=== PATIENT | male | born 1960 | race Caucasian/White ===

== ENCOUNTER 2021-09-15 17:40 | Emergency (ER) | payer OTHER ==
[2021-09-15 18:55] LABS: Urine Blood Negative (Negative); Urine Glucose Negative (Negative); Urine Protein Negative (Negative); Urine Specific Gravity 1.015 (1.005-1.030)
[2021-09-15 18:58] LABS: Absolute Lymphocytes (CBC) 2.5 K/uL (0.7-4.9); Hematocrit 44.9 % (39.6-49.0); Lymphocytes % 32.7 % (15.3-44.8); MPV 8.5 fL (7.6-11.3); RBC Red Blood Cell Count 4.46 M/uL (4.33-5.43)
[2021-09-15] MEDS ORDERED: PANTOPRAZOLE 40 MG INJ ONE (19:03)
[2021-09-15] MEDS ORDERED: FENTANYL CITR 100 MCG/2 ML ONE (19:03)
[2021-09-15] MEDS ORDERED: ONDANSETRON 4 MG/2 ML VIAL ONE (19:03)
[2021-09-15 19:11] LABS: Albumin 3.6 g/dL (3.4-5.0)
[2021-09-15 19:16] LABS: Bilirubin Total 0.3 mg/dL (0.2-1.0); Protein, Total 6.7 g/dL (6.4-8.2)
--- NOTE | 2021-09-15 20:16 | RAD REPORT ---
EXAM DESCRIPTION: CTAbdomen Pelvis W Contrast - 09/15/2021 8:08 pm CLINICAL HISTORY: Abdominal pain, acute, nonlocalized COMPARISON: No comparisons TECHNIQUE: CT of the abdomen and pelvis was performed. All CT scans are performed using dose optimization technique as appropriate and may include automated exposure control or mA/KV adjustment according to patient size. FINDINGS: Lower chest: Coronary artery calcifications. Aortic valve calcifications. Liver: Multiple liver lesions identified. The largest lesion in the right posterior hepatic lobe demo nstrates peripheral discontinuous nodular enhancement consistent with a hemangioma. The other lesions also likely represent hemangiomas. The largest lesion measures 7.7 cm. Biliary: No biliary ductal dilatation. Stomach: No significant focal abnormality. Duodenum: No significant focal abnormality. Pancreas: No significant abnormality. Spleen: No significant abnormality. Adrenal: No suspicious lesions. Kidney/ureter: No hydronephrosis. No renal calculi. Too small to characterize and/or benign appearing renal lesions are noted. Retroperitoneum: No retroperitoneal adenopathy. Vascular: No aneurysm. Mild atherosclerosis. Bowel: No significant focal abnormality. Normal appendix. Peritoneum: No ascites or free air. Bladder: Grossly unremarkable. Reproductive: No adnexal masses. Bones: No acute fracture. Other: n/a IMPRESSION: No acute intra-abdominal or pelvic finding. Normal appendix. Liver hemangiomas.
--- NOTE | 2021-09-15 20:56 | EDPHYS ---
Physician Documentation [facility] Name: Blaine Woodall Age: 60 yrs Sex: Male : 1960 Arrival Date: 09/15/2021 Time: 17:44 Bed 19 Private MD: ED Physician Claudio Higgins HPI: 09/15 18:12 This 60 yrs old Male presents to ER via Ambulatory with complaints of Abdominal Pain. cp 18:12 The patient presents with abdominal pain in the upper abdomen. Onset: The cp symptoms/episode began/occurred 1 week(s) ago. 18:12 The symptoms radiate to right and left lateral sides of lower chest. cp 18:12 Associated signs and symptoms: Pertinent negatives: nausea and vomiting, constipation, cp diarrhea, fever, shortness of breath. The symptoms are described as burning. Severity of pain: in the emergency department the pain is unchanged despite home interventions. Historical: - Allergies: 17:55 Sulfa (Sulfonamide Antibiotics); ss 17:55 Bactrim; ss - PMHx: 17:55 HIV positive; Liver hemangioma; Cardiomyopathy; Shingles; ss - Immunization history:: Client reports receiving the 2nd dose of the Covid vaccine. - Social history:: Smoking status: Patient reports the use of cigarette tobacco products, cigars. ROS: 18:20 Constitutional: Negative for body aches, chills, fever, poor PO intake. cp 18:20 Eyes: Negative for injury, pain, redness, and discharge. cp 18:20 Cardiovascular: Negative for chest pain, edema, palpitations. 18:20 Respiratory: Negative for cough, shortness of breath, wheezing. 18:20 Abdomen/GI: Positive for abdominal pain, Negative for nausea, vomiting, and diarrhea, constipation. 18:20 Back: Negative for radiated pain. 18:20 : Negative for urinary symptoms. 18:20 Neuro: Negative for altered mental status, dizziness, headache, weakness. 18:20 All other systems are negative. Exam: 18:25 Constitutional: The patient appears in no acute distress, alert, awake, cp non-diaphoretic, non-toxic, well developed, well nourished. 18:25 Head/Face: Normocephalic, atraumatic. cp 18:25 Eyes: Periorbital structures: appear normal, Conjunctiva: normal, no exudate, no injection, Sclera: no appreciated abnormality, Lids and lashes: appear normal, bilaterally. 18:25 ENT: External ear(s): are unremarkable, Nose: is normal, Mouth: Lips: moist, Oral mucosa: pink and intact, moist, Posterior pharynx: Airway: no evidence of obstruction, patent. 18:25 Chest/axilla: Inspection: normal, Palpation: is normal, no crepitus, no tenderness. 18:25 Cardiovascular: Rate: normal, Rhythm: regular, Edema: is not appreciated, JVD: is not cp appreciated. 18:25 Respiratory: the patient does not display signs of respiratory distress, Respirations: cp normal, no use of accessory muscles, no retractions, labored breathing, is not present, Breath sounds: are clear throughout, no decreased breath sounds, no stridor, no wheezing. 18:25 Abdomen/GI: Inspection: abdomen appears normal, Bowel sounds: active, all quadrants, Palpation: soft, in all quadrants, mild abdominal tenderness, in the right upper quadrant and left upper quadrant, rebound tenderness, is not appreciated, voluntary guarding, is not appreciated, involuntary guarding, is not appreciated. 18:25 Back: CVA tenderness, is absent, vertebral tenderness, is not appreciated. 18:25 Skin: cellulitis, is not appreciated, no rash present. Vital Signs: 17:54 BP 124 / 87; Pulse 70; Resp 15; Temp 99.2(TE); Pulse Ox 98% on R/A; Weight 81.65 kg; ss Height 5 ft. 9 in. (175.26 cm); Pain 5/10; 17:54 Body Mass Index 26.58 (81.65 kg, 175.26 cm) ss MDM: 18:11 Patient medically screened. fei 20:55 Data reviewed: vital signs, nurses notes, lab test result(s), radiologic studies, CT cp scan. 20:55 Differential diagnosis: bowel obstruction, cholecystitis, Cholelithiasis, pancreatitis, cp Ureterolithiasis, urinary tract infection. Counseling: I had a detailed discussion with the patient and/or guardian regarding: the historical points, exam findings, and any diagnostic results supporting the discharge/admit diagnosis, lab results, radiology results, the need for outpatient follow up, a environmental engineering manager, to return to the emergency department if symptoms worsen or persist or if there are any questions or concerns that arise at home. Response to treatment: the patient's symptoms have markedly improved after treatment, and as a result, I will discharge patient. Special discussion: Based on the patient's Hx, exam, and Dx evaluation, there is no indication for emergent surgery or inpatient Tx. It is understood by the patient/guardian that if the Sx's persist or worsen they need to return immediately for re-evaluation. ED course: VSS. Discussed results of CT abdomen/pelvis that was negative for acute findings, lipase of 403. Will discharge to home for continued monitoring. 09/15 18:40 Order name: CBC with Diff; Complete Time: 19:26 ld1 09/15 19:27 Interpretation: Normal except: MCV 100.9. cp 09/15 18:40 Order name: CMP; Complete Time: 19:26 ld1 09/15 20:19 Interpretation: Normal except: GLUC 109; BUN 20; CRE 1.45; GFR 50; AST 11. cp 09/15 18:40 Order name: Lipase; Complete Time: 19:26 ld1 09/15 19:27 Interpretation: Abnormal: LIP 403. 09/15 18:54 Order name: CT Abd/Pelvis - IV Contrast Only; Complete Time: 20:18 cp 09/15 20:42 Interpretation: Report reviewed. 09/15 18:56 Order name: Urine Dipstick-Ancillary; Complete Time: 19:26 EDMT 09/15 18:40 Order name: IV Saline Lock; Complete Time: 18:55 ld1 09/15 18:40 Order name: Labs collected and sent; Complete Time: 18:55 ld1 09/15 18:40 Order name: Urine Dipstick-Ancillary (obtain specimen); Complete Time: 18:55 ld1 Administered Medications: 19:02 Drug: fentaNYL (PF) 25 mcg Route: IVP; Site: left forearm; ld1 19:02 Drug: Zofran (Ondansetron) 4 mg Route: IVP; Site: left forearm; ld1 19:02 Drug: ProTONIX (pantoprazole) 40 mg Route: IVP; Site: left forearm; ld1 Disposition Summary: 09/15/21 20:55 Discharge Ordered Location: Home cp Problem: new cp Symptoms: have improved cp Condition: Stable cp Diagnosis - Acute pancreatitis without necrosis or infection, unspecified cp Followup: cp - With: Eyad Rogers MD - When: 2 - 3 days - Reason: Recheck today's complaints Discharge Instructions: - Discharge Summary Sheet cp - Acute Pancreatitis cp Forms: - Medication Reconciliation Form cp - Thank You Letter cp - Antibiotic Education cp - Prescription Opioid Use cp Prescriptions: - Protonix 40 mg Oral Tablet - take 1 tablet by ORAL route once daily; 30 tablet; Refills: 0, Product cp Selection Permitted - Zofran 4 mg Oral Tablet - take 1 tablet by ORAL route every 12 hours As needed; 20 tablet; Refills: 0, cp Product Selection Permitted - dicyclomine 20 mg Oral Tablet - take 1 tablet by ORAL route 4 times per day; 30 tablet; Refills: 0, Product cp Selection Permitted Signatures: Dispatcher [employer] EDClaudio Menon MD MD cha Smirch, Shelby, RN RN ss Claudio Bundy PA PA cp Rosy Martinez, RN RN ld1 Corrections: (The following items were deleted from the chart) 20:19 20:18 Normal except: GLUC 109; BUN 20; CRE 1.45; GFR 50. cp cp
--- NOTE | 2021-09-15 20:56 | ER ---
Nurse's Notes [facility] Name: Blaine Woodall Age: 60 yrs Sex: Male : 1960 Arrival Date: 09/15/2021 Time: 17:44 Bed 19 Private MD: Diagnosis: Acute pancreatitis without necrosis or infection, unspecified Presentation: 09/15 17:54 Chief complaint: Patient states: upper abd pain x 1 week. Coronavirus screen: Client ss denies travel out of the [place] in the last 14 days. Ebola Screen: Patient denies exposure to infectious person. Patient denies travel to an Ebola-affected area in the 21 days before illness onset. Initial Sepsis Screen: Does the patient meet any 2 criteria? No. Patient's initial sepsis screen is negative. Does the patient have a suspected source of infection? No. Patient's initial sepsis screen is negative. Risk Assessment: Do you want to hurt yourself or someone else? Patient reports no desire to harm self or others. Onset of symptoms was September 09, 2021. 17:54 Method Of Arrival: Ambulatory ss 17:54 Acuity: MICHELLE 3 ss Triage Assessment: 21:30 General: Appears in no apparent distress. Behavior is calm, cooperative, appropriate ld1 for age. Historical: - Allergies: 17:55 Sulfa (Sulfonamide Antibiotics); ss 17:55 Bactrim; ss - PMHx: 17:55 HIV positive; Liver hemangioma; Cardiomyopathy; Shingles; ss - Immunization history:: Client reports receiving the 2nd dose of the Covid vaccine. - Social history:: Smoking status: Patient reports the use of cigarette tobacco products, cigars. Screenin:03 Abuse screen: Denies threats or abuse. Denies injuries from another. Nutritional ld1 screening: No deficits noted. Tuberculosis screening: No symptoms or risk factors identified. Fall Risk None identified. Assessment: 19:03 Reassessment: Patient appears in no apparent distress at this time. see triage ld1 assessment. Pain: Complains of pain in left upper quadrant Pain does not radiate. Pain currently is 9 out of 10 on a pain scale. GI: Abdomen is flat, non-distended, Bowel sounds present X 4 quads. Abd is soft Abdomen is tender to palpation in left upper quadrant. Vital Signs: 17:54 BP 124 / 87; Pulse 70; Resp 15; Temp 99.2(TE); Pulse Ox 98% on R/A; Weight 81.65 kg; ss Height 5 ft. 9 in. (175.26 cm); Pain 5/10; 17:54 Body Mass Index 26.58 (81.65 kg, 175.26 cm) ED Course: 17:44 Patient arrived in ED. ds1 17:55 Triage completed. 17:55 Arm band placed on left wrist. 17:58 Claudio Bundy PA is PHCP. cp 17:58 Claudio Higgins MD is Attending Physician. cp 18:06 Rosy Martinez, RAOUL is Primary Nurse. ld1 19:03 Patient has correct armband on for positive identification. Placed in gown. Bed in low ld1 position. Call light in reach. Side rails up X2. armored truck driver on. Pulse ox on. NIBP on. Door closed. Noise minimized. Warm blanket given. 19:03 Inserted saline lock: 20 gauge in left forearm, using aseptic technique. Blood ld1 collected. 19:03 No provider procedures requiring assistance completed. ld1 20:10 CT Abd/Pelvis - IV Contrast Only In Process Unspecified. EDMS 20:54 Eyad Rogers MD is Referral Physician. cp 21:30 IV discontinued, intact, bleeding controlled, No redness/swelling at site. ld1 Administered Medications: 19:02 Drug: fentaNYL (PF) 25 mcg Route: IVP; Site: left forearm; ld1 19:02 Drug: Zofran (Ondansetron) 4 mg Route: IVP; Site: left forearm; ld1 19:02 Drug: ProTONIX (pantoprazole) 40 mg Route: IVP; Site: left forearm; ld1 Outcome: 20:55 Discharge ordered by MD. cp 21:30 Discharged to home ambulatory, with family. ld1 21:30 Condition: stable 21:30 Discharge instructions given to patient, family, Instructed on discharge instructions, follow up and referral plans. medication usage, Demonstrated understanding of instructions, follow-up care, medications, Prescriptions given X 3. 21:31 Patient left the ED. ld1 Signatures: Dispatcher [facility] ds1 Kamila Hunt RN RN Claudio Bundy PA PA cp Rosy Martinez, RAOUL RN ld1
[2021-09-15 22:11] VITALS: BP 124/87; TEMP 99.2; O2SAT 98
== END 2021-09-15 21:31 | disposition home or self-care (01) ==
LOC: ER 17:40
DX: K85.90 Acute pancreatitis without necrosis or infection, unspecified (principal); F17.290 Nicotine dependence, other tobacco product, uncomplicated; Z21 Asymptomatic human immunodeficiency virus [HIV] infection status; Z88.1 Allergy status to other antibiotic agents; Z88.2 Allergy status to sulfonamides
CPT/HCPCS: 85025; 36415; 81003; 83690; 80053; 74177; 96375; 96374; 99284; Q9967; C9113; J3010; J2405